=== PATIENT | male | born 1995 | race Caucasian/White ===

== ENCOUNTER 2021-11-13 20:03 | Emergency (ER) | payer OTHER ==
[~2021-11-13] VITALS: Ht 175.3 cm; Wt 90.7 kg
[2021-11-13 20:43] VITALS: BP 118/75
--- NOTE | 2021-11-13 20:49 | NUR ---
TO LOBBY FOLLOWING TRIAGE
--- NOTE | 2021-11-13 23:16 | NUR ---
PT TAKEN TO BED 11
--- NOTE | 2021-11-14 | NUR ---
26 yo/m presents to ED w c/o lac to L ring finger 3/10 stinging pain x4 hours s/p cutting self w a tuna can. Pt has .4 inch lac to L ring finger, bleeding controlled, cap refill <2 sec, + rom. Pt denies any fevers, chills, n/v/d. pmh: denies allergies: denies tetanus: 5-10 yrs
--- NOTE | 2021-11-14 01:05 | NUR ---
PTs FINGER CLEANED AND NEW DRESSING APPLIED. PT TOLERATED WELL.
[2021-11-14 01:10] VITALS: BP 123/52
--- NOTE | 2021-11-14 01:10 | NUR ---
Patient discharged with v/s stable. Written and verbal after care instructions given and explained. Patient verbalized understanding. Ambulatory with steady gait. All questions addressed prior to discharge. Advised to follow up with PMD.
== END 2021-11-14 01:10 | disposition home or self-care (01) ==
LOC: MED 20:03
DX: S61.215A Laceration without foreign body of left ring finger without damage to nail, initial encounter (principal); W26.8XXA Contact with other sharp object(s), not elsewhere classified, initial encounter; Y93.89 Activity, other specified; Y92.89 Other specified places as the place of occurrence of the external cause; Y99.8 Other external cause status
CPT/HCPCS: 90471; 90715; 99283